=== PATIENT | male | born 1945 | race Caucasian/White ===

== ENCOUNTER → 2017-08-01 12:03 | Outpatient (CLI) | payer MEDICARE, OTHER ==
[2012-06-27 14:24] VITALS: BMI 28.0
[2017-08-02 09:18] LABS: HEPATITIS C ANTIBODY <0.1 (0.0-0.9)
== END | disposition home or self-care (01) ==
LOC: D.LAB 12:00
PROVIDERS: Internal Medicine Gastroenterology
DX: R19.7 Diarrhea, unspecified (principal); Z11.59 Encounter for screening for other viral diseases; Z13.818 Encounter for screening for other digestive system disorders; Z51.81 Encounter for therapeutic drug level monitoring; Z79.899 Other long term (current) drug therapy; R10.9 Unspecified abdominal pain; R19.4 Change in bowel habit